=== PATIENT | female | born 1990 | race Caucasian/White ===

== ENCOUNTER 2023-12-16 12:59 | Emergency (ER) | payer MEDICAID ==
[~2023-12-16] VITALS: Ht 177.8 cm; Wt 62.6 kg
[2023-12-16] MEDS ORDERED: PSEUDOEPHEDRINE HCL 30 MG TABLET ONE (13:29)
[2023-12-16] MEDS ORDERED: BENZONATATE 100 MG CAPSULE PO ONE (13:29)
[2023-12-16] MEDS: PSEUDOEPHEDRINE HCL 30 MG TABLET PO ONE (13:32)
[2023-12-16] MEDS: BENZONATATE 100 MG CAPSULE PO PRN (13:34)
[2023-12-16] MEDS ORDERED: BENZ-13 PO (13:37)
[2023-12-16 14:25] VITALS: BP 103/68; TEMP 98.2; O2SAT 98
== END 2023-12-16 14:25 | disposition home or self-care (01) ==
LOC: ER 13:10
DX: R05.9 Cough, unspecified (principal); R11.0 Nausea; R09.81 Nasal congestion; Z60.2 Problems related to living alone
CPT/HCPCS: 71045-TC